=== PATIENT | female | born 1960 | race Asian ===

== ENCOUNTER 2017-09-06 13:23 | Inpatient (IN) | payer MEDICARE, OTHER ==
--- NOTE | 2017-09-06 13:35 | ED Physician Chart ---
ED Chief Complaint/HPI - Patient Information Date Seen:: 09/06/17 Time Seen:: 13:20 Chief Complaint:: Depression History of Present Illness:: onset x 3 days of depression; no report of trauma, H/As, S/T, neck pain, C/P, SOB, Abd. Pain, SIs, A/N/V/D/C, fever, chills, or urinary s/s Historian:: Patient Review:: Nurse's Note Reviewed ED Review of Systems - Review of Systems General/Constitutional: No fever, No chills, No weight loss, No weakness, No diaphoresis, No edema, No loss of appetite Skin: No skin lesions, No rash, No bruising Head: No headache, No light-headedness Eyes: No loss of vision, No pain, No diplopia ENT: No earache, No nasal drainage, No sore throat, No tinnitus Neck: No neck pain, No swelling, No thyromegaly, No stiffness, No mass noted Cardio Vascular: No chest pain, No palpitations, No PND, No orthopnea, No edema Pulmonary: No SOB, No cough, No sputum, No wheezing GI: No nausea, No vomiting, No diarrhea, No pain, No melena, No hematochezia, No constipation, No hematemesis G/U: No dysuria, No frequency, No hematuria, No nacturia 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, No abnormal vaginal bleed, No contraction Musculoskeletal: No bone or joint pain, No back pain, No muscle pain Endocrine: No polyuria, No polydipsia Psychiatric: Prior psych history, Depression, No anxiety, No suicidal ideation, No homicidal ideation, No auditory hallucination, No visual hallucination Hematopoietic: No bruising, No lymphadenopathy Allergic/Immuno: No urticaria, No angioedema Neurological: No syncope, No focal symptoms, No weakness, No paresthesia, No headache, No seizure, No dizziness, No confusion, No vertigo ED Past Medical History - Past Medical History Obtainable: Yes Past Medical History: HTN Family History: HTN Social History: Non Smoker, No Alcohol, No Drug Use, Single, Care Facility Surgical History: None Psychiatricy History: Depression Medication: Reviewed Family Medical History - Family Member Mother History Unknown: Yes ED Physical Exam - Physical Examination General/Constitutional: Awake, Well-developed, well-nourished, Alert, No distress, GCS 15, Non-toxic appearing, Ambulatory Head: Atraumatic Eyes: Lids, conjuctiva normal, PERRL, EOMI Skin: Nl inspection, No rash, No skin lesions, No ecchymosis, Well hydrated, No lymphadenopathy ENMT: External ears, nose nl, TM canals nl, Nasal exam nl, Lips, teeth, gums nl , Oropharynx nl, Tonsils nl Neck: Nontender, Full ROM w/o pain, No JVD, No nuchal rigidity, No bruit, No mass, No stridor Respiratory: Nl effort/Exclusion, Clear to Auscultation, No Wheeze/Rhonchi/Rales Cardio Vascular: RRR, No murmur, gallop, rubs, NL S1 S2, Carotid/Femoral/Distal pulses equal bilaterally GI: No tenderness/rebounding/guarding, No organomegaly, No hernia, Normal BS's, Nondistended, No mass/bruits, No McBurney tenderness : No CVA tenderness Extremities: No tenderness or effusion, Full ROM, normal strength in all extremities, No edema, Normal digits & nails Neuro/Psych: Alert/oriented, DTR's symmetric, Normal sensory exam, Normal motor strength, Judgement/insight normal, Mood normal, Normal gait, No focal deficits Other Neuro/Psych comments:: + Psychomotor Depression; no SIs; Mood/Affect: Stable Misc: Normal back, No paraspinal tenderness ED Labs/Radiology/EKG Results - Lab Results Comments:: unremarkable - EKG Interpretations EKG Time:: 14:00 Rate & Rhythm: 79; NSR Comments:: non-specific st-t changes ED Septic Shock - . Is Septic Shock (SBP<90, OR Lactate>4 mmol\L) present?: No ED Reassessment (Disposition) - Reassessment Reassessment Condition:: Improved - Diagnosis Diagnosis:: Dx: Depression; Medical Clearance - Aftercare/Follow up Instructions Aftercare/Follow-Up Instructions:: Counseled pt regarding lab results/diagnosis & need follow up, Counseled pt & family regarding lab results/diagnosis & need follow up - Patient Disposition Discharge/Transfer:: Acute Care w/in this hosp Admitted to:: [facility] Condition at Disposition:: Stable, Improved
[2017-09-06 14:10] LABS: % BASOPHILS 1.5 % (0.0-2.0); % LYMPHOCYTES 31.9 % (20.0-50.0); % MONOCYTES 11.1 % (2.0-10.0); % NEUTROPHILS 49.5 % (40.0-80.0); BASOPHILE ABSOLUTE 0.1 Th/cumm (0-0.2); EOSINOPHILE ABSOLUTE 0.2 Th/cmm (0.1-0.4); HEMOGLOBIN 11.7 gm/dL (12-16); LYMPHOCYTE ABSOLUTE 1.3 Th/cmm (1.5-3.0); MEAN CELL VOLUME 100.2 fl (81-100); MEAN CORPUSCULAR HEMOGLOBIN 33.5 pg (27.0-31.0); MEAN CORPUSCULAR HGB CONC 33.4 pg (28.0-36.0); MEAN PLATELET VOLUME 7.8 fl; MONOCYTE ABSOLUTE 0.5 Th/cmm (0.3-1.0); PLATELET COUNT 148 Th/cmm (150-400); RED BLOOD COUNT 3.49 Mil/cmm (3.80-5.10); RED CELL DISTRIBUTION WIDTH 13.4 % (11.5-20.0); WHITE BLOOD COUNT 4.1 Th/cmm (4.8-10.8)
[2017-09-06 14:36] LABS: ALB/GLOB RATIO 1.6 (1.0-1.8); ALBUMIN 3.6 gm/dL (3.7-5.3); ALKALINE PHOSPHATASE 130 U/L (34-104); ANION GAP 11.6 (7.0-16.0); BILIRUBIN,TOTAL 0.2 mg/dL (0.3-1.0); BUN - UREA NITROGEN 22 mg/dL (7-25); CALCIUM SERUM 9.6 mg/dL (8.6-10.3); CARBON DIOXIDE 26.9 mEq/L (21.0-31.0); CHLORIDE 106 mEq/L (98-107); CHOLESTEROL 150 mg/dL (<200); CREATININE - SERUM 1.3 mg/dL (0.6-1.2); GFR AFRICAN-AMERICAN 54.3 ml/min (>90); GFR NON AFRICAN-AMERICAN 44.9 ml/min; GLUCOSE 132 mg/dL (70-105); HDL -HIGH DENSITY LIPOPROTEIN 49 mg/dL (23-92); POTASSIUM SERUM 4.5 mEq/L (3.5-5.1); SGOT 26 U/L (13-39); SGPT/ALT 48 U/L (7-52); SODIUM SERUM 140 mEq/L (136-145); TOTAL PROTEIN,SERUM 5.9 gm/dL (6.0-8.3); TRIGLYCERIDES 138 mg/dL (<150)
[2017-09-06 14:50] LABS: ACETAMINOPHEN < 10.0 ug/mL (10.0-30.0)
[2017-09-06 14:51] LABS: SALICYLATES (ASPIRIN) < 25.0 mg/L (30.0-100.0)
[2017-09-06 18:14] LABS: A1C % 5.3 % (4.0-6.0)
[2017-09-06 18:35] VITALS: BP 00/00
[2017-09-06] MEDS ORDERED: Magnesium Hydroxide (MOM) 30 mL UDC PO PRN (18:37)
[2017-09-06] MEDS ORDERED: Maalox 30 mL Cup PO PRN (18:37)
[2017-09-06] MEDS ORDERED: GLUCAGON HCl 1 MG KIT IM PRN (18:40)
[2017-09-06] MEDS ORDERED: Acetaminophen 500 MG TAB PO PRN (18:40)
[2017-09-06] MEDS ORDERED: LIPASE PO SCH (21:00)
[2017-09-06] MEDS ORDERED: PROTEASE PO SCH (21:00)
[2017-09-06] MEDS ORDERED: AMYLASE PO SCH (21:00)
[2017-09-06] MEDS: INSULIN ASPART SLIDING SCALE 100 UNITS/ML UNIT SUBQ SCH (21:21)
[2017-09-06] MEDS: Ferrous Sulfate 325 MG TAB PO SCH (21:21)
--- NOTE | 2017-09-07 03:01 | Psychosocial Evaluation ---
DATE OF SERVICE: 09/06/2017 IDENTIFYING DATA: The patient is a 57-year-old woman, resident of an extended care in [place]. Information obtained by directly interviewing the patient as well as reviewing the admission papers. JUSTIFICATION FOR HOSPITALIZATION: The patient is admitted here on a voluntary basis in view of her acute depression. CHIEF COMPLAINT: "I am hearing voices that are scaring me." HISTORY OF PRESENT ILLNESS: This is the first psychiatric hospitalization to [facility] for this patient who has been diagnosed to have mental illness since age 16. The patient is reporting that lately she has been hearing voices that are telling her to hurt herself. The patient also has been having acute mood swings. The patient's sleep is noted to be poor. Appetite is noted to be fair. PAST PSYCHIATRIC HISTORY: The patient is reported to have been hospitalized, but could not give the details. MEDICAL HISTORY AND PHYSICAL EXAMINATION: Requested to be done by Dr. Batres. SUBSTANCE ABUSE HISTORY: None. PHYSICAL OR SEXUAL ABUSE HISTORY: None. LEGAL PROBLEMS: None at this time. STRENGTH AND ASSETS: The patient is motivated. MENTAL STATUS EXAMINATION: The patient is a 57-year-old, looking her stated age, superficially cooperative. Eye contact is poor. Mood is noted to be depressed. Affect is constricted. Insight and judgment at this time are noted to be impaired. Impulse control is noted to be poor. The patient is responding to internal stimuli. The patient has been having difficult time to cope with the stress. The patient is having acute mood swings. The patient is alert and oriented x 3. The patient's insight and judgment at this time are noted to be improving. ____. Impulse control seems to be poor. The patient is suicidal at this time. No homicidal ideation is noted. DIAGNOSTIC IMPRESSION: AXIS I: Schizoaffective disorder. AXIS II: None. AXIS III: As per Dr. Batres. IMMEDIATE TREATMENT PLAN: The patient is going to be continued on the Depakote and the Seroquel. The patient is going to be closely monitored. ESTIMATED LENGTH OF STAY: 5-7 days. DISCHARGE CRITERIA: When she no longer is a threat to self or others and be able to cope up with the stress. [facility]# [id number]
[2017-09-07] MEDS: INSULIN ASPART SLIDING SCALE 100 UNITS/ML UNIT SUBQ SCH ×3 (06:36→21:05)
[2017-09-07] MEDS ORDERED: Levothyroxine 0.05 Mg Tab PO SCH (07:30)
[2017-09-07] MEDS ORDERED: Benztropine 1 MG TAB PO PRN (08:55)
[2017-09-07] MEDS ORDERED: NEPROVITE PO SCH (09:00)
[2017-09-07] MEDS ORDERED: Benztropine 1 MG TAB PO SCH (09:00)
[2017-09-07] MEDS: Vitamin B Complex w/Vitamin C Tab PO SCH (09:03)
[2017-09-07] MEDS: Multivitamin Tab PO SCH (09:03)
[2017-09-07] MEDS: Ferrous Sulfate 325 MG TAB PO SCH ×3 (09:04→21:05)
--- NOTE | 2017-09-07 14:02 | Progress Notes ---
DATE: 09/07/2017 SUBJECTIVE: Staff was spoken to. The patient is interviewed. The patient's mood swings are noted. The patient is still responding to internal stimuli. Insight and judgment are very much impaired. The patient is currently on 100 mg twice a day of the Seroquel and the patient is also receiving the Depakote 500 mg twice a day and hence it is decided to add the Depakote level and follow the patient with the supportive therapy. JOB# [id number]
[2017-09-07] MEDS: Pancrelipase Cap ECC PO SCH ×2 (15:23→21:06)
--- NOTE | 2017-09-07 23:25 | Consultation ---
DATE OF CONSULTATION: INTERNAL MEDICINE CONSULTATION REFERRING PHYSICIAN: Dr. García. REASON FOR CONSULT: Medical management. HISTORY OF PRESENT ILLNESS: The patient is a 57-year-old pleasant lady with a history of type 2 diabetes, hypothyroidism, hypertension, depression, who was transferred from [facility] secondary to worsening depression, lack of energy and frequent falls as of late. She tells me that one of her providers at the facility recently lowered her Synthroid from 175mcg to mcg a few weeks ago, but she is unsure as to why. She states that she has had no recent blood work or any other symptomatology that would lead to the change, but again she is not 100% sure. She states that she has felt worsening depression, but denies any constipation, lethargy or insomnia. She does admit to some weight gain over the last few weeks. PERTINENT FINDINGS ON ADMISSION: Include an H and H of with a creatinine of 1.3, glucose 132 and a TSH of 38.3. The patient is currently residing in the [facility] [place]. PAST MEDICAL HISTORY: As noted above. PAST SURGICAL HISTORY: She underwent a gastric bypass surgery back in 1988, a revision around 2009. She also has a history of . FAMILY HISTORY: Her dad secondary to colon and liver cancer. He also suffered from CAD and hypertension. Her mother had Alzheimer's dementia and hypertension. SOCIAL HISTORY: No tobacco, ETOH or illicit drug usage. She is to be a licensed nurse. ALLERGIES: LAMICTAL with a reported rash. OUTPATIENT MEDICATIONS: Tylenol 650 q.4 p.r.n. for moderate pain and 1000 mg q. 6 p.r.n. for severe pain, Ventolin metered dose inhaler q.i.d. p.r.n., amlodipine 5 mg every day, benztropine 1 mg b.i.d., Bisacodyl 10 mg per rectum every day p.r.n. for constipation, vitamin D 5000 international units every day, Depakote 750 b.i.d., docusate sodium 100 mg every day, Cymbalta 30 mg every day, iron sulfate 325 t.i.d., insulin sliding scale, Synthroid 50 mcg every day, Creon 36,000 units q.i.d., lorazepam 0.5 b.i.d., Nephro-Dianna 1 tab every day, Seroquel 100 mg q.12 hours. REVIEW OF SYSTEMS: CONSTITUTIONAL: No fever, chills. She has at least 10-pound weight gain over the last few weeks. CARDIAC: No chest pain, palpitations. PULMONARY: Denies any shortness of breath, any cough or phlegm production. GASTROINTESTINAL: No constipation, no bowel habit changes. No diarrhea. GENITOURINARY: No bladder habit changes including no dysuria or hematuria. NEUROLOGIC: Denies any syncopal episodes, any headaches, or any changes in vision. MUSCULOSKELETAL: Some weakness reported over the last few weeks and times she has felt her legs given out and has had falls or near falls, which sound to be mechanical. PHYSICAL EXAMINATION: VITAL SIGNS: Temperature 97.7, afebrile, pulse 63, respirations 18 to 20, BP 133/79, satting 95-97% on room air. GENERAL: Well-developed, well-nourished female, awake, alert and oriented x 3, not in acute distress, answering questions appropriately. HEAD AND NECK: Normocephalic, atraumatic. Pupils reactive to light. Extraocular movements are intact. Oropharynx moist and clear. CARDIOVASCULAR: Regular rate and rhythm without any murmurs. LUNGS: Clear to auscultation bilaterally. ABDOMEN: Soft, supple, nontender, nondistended, normoactive bowel sounds. LOWER EXTREMITIES: No edema. LABORATORY DATA: White count 4.1, H and H 11/35, platelet count of 148. Creatinine 1.3, BUN 22. Rest of chemistry was within normal limits. LFTs show an alkaline phosphatase 130, total protein 5.05, albumin 3.6, otherwise negative. Cholesterol 150, LDL 75, HDL 49. TSH 38.3. DIAGNOSTICS: None, current. IMPRESSION: 1. Acute on chronic depression. 2. History of hypothyroidism with an elevated TSH level. 3. History of type 2 diabetes. 4. History of essential hypertension. 5. Mild pancytopenia. 6. Renal insufficiency. PLAN: The patient has been admitted to [facility] for further management and care. Her Synthroid has been increased from 50 mcg to 100 mcg every day. In the interim, she will be kept on her own medications schedule. We will continue to follow up the patient on a daily basis. [facility]# [id number] MTDD
[2017-09-08] MEDS: INSULIN ASPART SLIDING SCALE 100 UNITS/ML UNIT SUBQ SCH ×4 (06:34→20:45)
[2017-09-08] MEDS: Levothyroxine 0.05 Mg Tab PO SCH (06:53)
[2017-09-08] MEDS: Multivitamin Tab PO SCH (08:32)
[2017-09-08] MEDS: Ferrous Sulfate 325 MG TAB PO SCH ×3 (08:32→20:43)
[2017-09-08] MEDS: Vitamin B Complex w/Vitamin C Tab PO SCH (08:32)
[2017-09-08] MEDS: Pancrelipase Cap ECC PO SCH ×4 (08:52→20:43)
[2017-09-08] MEDS ORDERED: Albuterol Nebulizer 2.5mg/3mL HHN SCH (15:00)
--- NOTE | 2017-09-09 02:43 | Progress Notes ---
DATE: 09/08/2017 SUBJECTIVE: Staff was spoken to. The patient is interviewed. Mood is noted to be irritable. Affect is constricted. The patient is stating that she has been seeing snakes and when she was listening to the TV, she had been hearing someone calling her whore and she needed to be killed and the patient got scared and came to the other room. The patient's coping skills at this time are noted to be extremely poor. Sleep and appetite are also noted to be very poor. ASSESSMENT: The patient is still psychotic and suicidal. PLAN: To continue the patient with the supportive therapy and follow up. [facility]# [id number]
[2017-09-09] MEDS: Levothyroxine 0.05 Mg Tab PO SCH (06:53)
[2017-09-09] MEDS: INSULIN ASPART SLIDING SCALE 100 UNITS/ML UNIT SUBQ SCH ×4 (06:58→21:20)
[2017-09-09] MEDS: Ferrous Sulfate 325 MG TAB PO SCH ×3 (08:45→21:14)
[2017-09-09] MEDS: Multivitamin Tab PO SCH (08:45)
[2017-09-09] MEDS: Vitamin B Complex w/Vitamin C Tab PO SCH (08:45)
[2017-09-09] MEDS: Pancrelipase Cap ECC PO SCH ×4 (08:51→21:14)
--- NOTE | 2017-09-09 17:17 | Progress Notes ---
DATE: 09/09/2017 SUBJECTIVE: Staff was spoken to. The patient is interviewed. Mood is noted to be depressed. Affect is constricted. The patient is still having paranoid delusions. The patient is also having visual hallucinations. The patient is stating that she has been seeing the snakes all over and the patient is very fearful and patient also has been responding to the internal stimuli and is stating that when she is listening to these TV. She states that she is hitting the curse words. ASSESSMENT: The patient is still psychotic. PLAN: To increase the dose on the Seroquel to 150 mg twice a day and follow the patient. JOB# [id number]
[2017-09-10] MEDS: Levothyroxine 0.05 Mg Tab PO SCH (06:46)
[2017-09-10] MEDS: INSULIN ASPART SLIDING SCALE 100 UNITS/ML UNIT SUBQ SCH ×4 (06:49→20:22)
[2017-09-10] MEDS: Multivitamin Tab PO SCH (09:16)
[2017-09-10] MEDS: Vitamin B Complex w/Vitamin C Tab PO SCH (09:16)
[2017-09-10] MEDS: Ferrous Sulfate 325 MG TAB PO SCH ×3 (09:18→20:37)
[2017-09-10] MEDS: Pancrelipase Cap ECC PO SCH ×4 (09:19→20:37)
--- NOTE | 2017-09-11 03:06 | Progress Notes ---
DATE: 09/10/2017 PSYCHIATRIC PROGRESS NOTE SUBJECTIVE: Staff was spoken to. The patient is interviewed. Mood is noted to be irritable. Affect is constricted. Insight and judgment are noted to be still impaired. Impulse control seems to be limited. The patient has been having acute mood swings. The patient is reporting that she has a bird singing in her ear, telling her to fly, and the patient has been trying to get into the chair and tried to jump off. The patient's coping skills are noted to be poor. The patient is trying to test the limits on the unit. No side effects to the medications are noted at this time. ASSESSMENT: The patient is still impulsive. PLAN: To continue the patient with the supportive therapy. Encouraged the patient to verbalize the concerns. The dose of the Seroquel is going to be increased to 200 mg twice a day. JOB# [id number]
--- NOTE | 2017-09-11 04:37 | Consultation ---
DATE OF CONSULTATION: 09/08/2017 REQUESTING PHYSICIAN: Kimmy García M.D. TYPE OF CONSULTATION: Psychology. HISTORY OF PRESENT ILLNESS: The patient is a 57-year-old female who is a resident of extended care in [place]. The patient is admitted in view of her depression. The following is by the patient's self report and review of the medical record. According to record review, the patient has a long history of mental illness. The patient reported to the staff at her facility that she is hearing voices that are telling her to hurt herself. The patient is experiencing mood swings and states that she is very depressed. The patient admits suicidal ideation, with no plan or intention. PAST MEDICAL HISTORY: Please see history and physical by Dr. Batres. PAST PSYCHIATRIC HISTORY: The patient has a history of mental illness and has had previous hospitalizations, the details and specifics are unknown at this time. SUBSTANCE ABUSE HISTORY: None. PSYCHOSOCIAL HISTORY: The [facility] a [facility]. The patient did not answer questions about occupational or educational history. The patient denied any physical or sexual abuse history and there are no legal problems at this time. The patient did not answer the question about latter-day affiliation or family history and relationships. MENTAL STATUS EXAMINATION: The patient appears to be her stated age. The patient's attitude is cooperative. Eye contact is poor. Speech is spontaneous. Mood is depressed. Affect is mood congruent and reactive. Thought process shows to be distractible. The patient seems to be responding to internal stimuli. The patient's mood is fluctuating and the patient is endorsing experiencing auditory hallucinations. The patient states that these are command type and telling her to hurt herself. The patient states that she is very fearful. Concentration is poor. The patient did not participate in the memory assessment. The patient is alert and oriented to person and place. Impulse control is compromised. The patient did not participate in the interpretation of proverbs. Insight is poor. Judgment is poor. DIAGNOSTIC IMPRESSION: AXIS I: History of schizoaffective disorder. AXIS II: None. AXIS III: Please see history by Dr. Batres. PLAN: The patient has been seen by Dr. García for psychiatric evaluation and for the management of the patient's psychotropic medications. We will provide reality orientation and reality differentiation to assist the patient in focusing on reality based thoughts versus delusional thought. We will provide coping strategies for phase of life issues as well as for chronic severe mental illness. We will provide supportive therapy and motivational enhancement for the patient to stay compliant with all aspects of her care and treatment plan. We will provide cognitive behavioral therapy for the patient's depression. The patient is being continued on Depakote and Seroquel according to Dr. García and will be closely monitored. We will provide consistent opportunities for the patient to verbally contract for safety and no self-harm. Thank you, Dr. García for this consult and the opportunity to participate with you in this patient's care. JOB# [id number] MTDMonster
[2017-09-11] MEDS: Levothyroxine 0.05 Mg Tab PO SCH (06:35)
[2017-09-11] MEDS: INSULIN ASPART SLIDING SCALE 100 UNITS/ML UNIT SUBQ SCH ×4 (06:55→21:09)
[2017-09-11] MEDS: Pancrelipase Cap ECC PO SCH ×4 (10:00→20:57)
[2017-09-11] MEDS: Ferrous Sulfate 325 MG TAB PO SCH ×3 (10:00→20:58)
[2017-09-11] MEDS: Multivitamin Tab PO SCH (10:00)
[2017-09-11] MEDS: Vitamin B Complex w/Vitamin C Tab PO SCH (10:00)
--- NOTE | 2017-09-11 16:20 | Progress Notes ---
DATE: 09/11/2017 SUBJECTIVE: Staff was spoken to. The patient is interviewed. Mood is noted to be irritable. Affect is constricted. Insight and judgment noted to be still impaired. The patient stating that she is still having the bird singing in her ears, but today the bird is not telling her to jump off the window. The patient is stating that she had a good night sleep last night. The patient is currently on 500 mg twice a day of the Depakote and the patient is also placed on the Seroquel, which was given at 200 mg twice a day and the patient is going to be closely monitored with it. ASSESSMENT: The patient is still psychotic and impulsive. PLAN: To continue the patient with the supportive therapy. I encouraged the patient to verbalize the concerns rather than to act out. JOB# [id number]
[2017-09-12] MEDS: Levothyroxine 0.05 Mg Tab PO SCH (06:45)
[2017-09-12] MEDS: INSULIN ASPART SLIDING SCALE 100 UNITS/ML UNIT SUBQ SCH ×3 (06:46→21:12)
[2017-09-12] MEDS: Pancrelipase Cap ECC PO SCH ×3 (08:33→21:13)
[2017-09-12] MEDS: Multivitamin Tab PO SCH (08:33)
[2017-09-12] MEDS: Ferrous Sulfate 325 MG TAB PO SCH ×3 (08:34→21:11)
[2017-09-12] MEDS: Vitamin B Complex w/Vitamin C Tab PO SCH (08:34)
--- NOTE | 2017-09-13 01:19 | Progress Notes ---
DATE: 09/12/2017 IDENTIFYING DATA: Staff was spoken to. The patient is interviewed. Mood is noted to be anxious and depressed. Affect is constricted. The patient is isolative and withdrawn. Coping skills are noted to be poor. The patient is stating that she is worried that she is going to be here forever and the patient is stating that the visual hallucinations have been going down, but the patient has been having problem with the sleep. ASSESSMENT: The patient is still having the mood swings and psychosis, but psychosis is resolving. PLAN: To continue the patient with the supportive therapy, I encouraged the patient to verbalize the concerns rather than to act out. JOB# [id number]
[2017-09-13] MEDS: Levothyroxine 0.05 Mg Tab PO SCH (07:05)
[2017-09-13] MEDS: INSULIN ASPART SLIDING SCALE 100 UNITS/ML UNIT SUBQ SCH (07:08)
[2017-09-13] MEDS: Multivitamin Tab PO SCH (08:25)
[2017-09-13] MEDS: Vitamin B Complex w/Vitamin C Tab PO SCH (08:25)
[2017-09-13] MEDS: Ferrous Sulfate 325 MG TAB PO SCH (08:25)
--- NOTE | 2017-09-14 15:08 | Progress Notes ---
DATE: 09/13/2017 SUBJECTIVE: Staff was spoken to. The patient is interviewed. Mood is noted to be anxious. Affect is appropriate. Not suicidal or homicidal. The patient denies any active hallucinations or delusions are noted. The patient is motivated to seek treatment. Also, the effect of the medications are noted. ASSESSMENT: The patient is stabilizing. PLAN: To discharge the patient today for followup on an outpatient basis. [facility]# [id number]
== END 2017-09-13 11:30 | DRG 885 ==
LOC: ER 13:23 → GERO2 17:10
PROVIDERS: ADMIT Psychiatry & Neurology Psychiatry; ATTEND Psychiatry & Neurology Psychiatry
DX: F25.9 Schizoaffective disorder, unspecified (principal); D61.818 Other pancytopenia; E03.9 Hypothyroidism, unspecified; E11.9 Type 2 diabetes mellitus without complications; I10 Essential (primary) hypertension; F32.9 Major depressive disorder, single episode, unspecified; N28.9 Disorder of kidney and ureter, unspecified; F29 Unspecified psychosis not due to a substance or known physiological condition; Z82.49 Family history of ischemic heart disease and other diseases of the circulatory system
CPT/HCPCS: 36415-UA; 80053-TC; 80061-TC; 80164-TC; 80320-TC; 80329-TC; 82948-90; 83036-90; 84443-TC; 85025-TC; 86592-TC; 93005; J1815; Z7610